=== PATIENT | female | born 1975 | race Caucasian/White ===

== ENCOUNTER → 2016-11-20 | Outpatient (CLI) | payer BC | LOC: MAMO 14:40 | DX: Z12.31 Encounter for screening mammogram for malignant neoplasm of breast (principal) | CPT/HCPCS: G0202 ==

== ENCOUNTER 2021-04-22 07:26 | Emergency (ER) | payer BC ==
[~2021-04-22 07:26] MED LIST: NORCO 5-325 TA1 EACH PO
[2021-04-22 07:55] LABS: HEMOGLOBIN 14.1 gm/dl (12.3-15.3); RED BLOOD COUNT 4.96 M/UL (4.00-5.10); WHITE BLOOD COUNT 8.3 K/UL (4.5-11.0)
[2021-04-22 08:13] LABS: BUN/CREATININE RATIO 16 (0-10)
== END 2021-04-22 18:29 | disposition short-term general hospital (02) ==
LOC: ER1 07:26
PROVIDERS: Physician Assistant
DX: N13.2 Hydronephrosis with renal and ureteral calculous obstruction (principal); N39.0 Urinary tract infection, site not specified; R19.7 Diarrhea, unspecified
CPT/HCPCS: 80053; 81001; 83690; 84703; 85025; 87040; 87077; 87086; 87186; 96374; 96375; 99285; J0696; J2270; J2405; J7030; Q9967

== ENCOUNTER 2022-02-16 22:40 | Emergency (ER) | payer BC ==
[2022-02-17 01:02] LABS: HEMOGLOBIN 12.7 gm/dl (12.3-15.3); RED BLOOD COUNT 4.74 M/UL (4.00-5.10); WHITE BLOOD COUNT 9.4 K/UL (4.5-11.0)
[2022-02-17 01:18] LABS: BUN/CREATININE RATIO 19 (0-10)
[2022-02-17] MEDS ORDERED: OMNICEF 300 MG300 MG PO (03:58)
== END 2022-02-17 04:35 | disposition home or self-care (01) ==
LOC: ER1 22:40
PROVIDERS: Physician Assistant
DX: N39.0 Urinary tract infection, site not specified (principal); R21 Rash and other nonspecific skin eruption; E87.1 Hypo-osmolality and hyponatremia; E11.9 Type 2 diabetes mellitus without complications; Z20.822 Contact with and (suspected) exposure to COVID-19; Z87.442 Personal history of urinary calculi; I10 Essential (primary) hypertension; Z88.1 Allergy status to other antibiotic agents
CPT/HCPCS: 0240U; 71045; 80053; 81001; 83605; 85025; 87040; 87077; 87086; 87186; 96374; 99283; J0696; J7030